=== PATIENT | female | born 1935 | race Caucasian/White ===

== ENCOUNTER → 2016-12-12 | Day surgery (SDC) | payer MEDICARE ==
[~2016-12-12] MED LIST: ABILIFY PO; ABILIFY10 MG PO; ACETAMINOPHEN PO; AMLODIPINE BESY10 MG PO; EVISTA60 M1 PO; LOSARTAN-HCTZ1 EACH PO; METFORMIN HCL500 M1 PO; METFORMIN PO; MOBIC PO; MOBIC15 MG PO; NORCO 5/325 TAB1 TAB PO; NORVASC PO; PREDNISONE5 M1 PO; TYLENOL PM EX-1 EACH PO; ZOLOFT PO
--- NOTE | ~2016-12-12 | OR ---
Unit #: [id number] #: [id number] Patient: COLEMAN LOCKE [id number] [address] [address] [id number] O MR#: [id number] NAME: COLEMAN LOCKE ROOM: Date of Procedure: 12/12/2016 Admission Date: 12/12/2016 Surgeon: Smith Chavira M.D. : 1935 Attending Physician: Smith Chavira M.D. Primary Care Physician: Everette Cain M.D. OPERATIVE REPORT JOB NOTE: VERIFY MRN PREOPERATIVE DIAGNOSES 1. History of colonic polyps. 2. Screening colonoscopy. POSTOPERATIVE DIAGNOSES 1. History of colonic polyps. 2. Screening colonoscopy. PROCEDURE PERFORMED Colonoscopy to cecum. ANESTHESIA Monitored anesthesia care. FINDINGS The patient was found to have sigmoid diverticula and one or two small right-sided diverticula. Internal hemorrhoids were also found. SPECIMENS None. COMPLICATIONS None apparent. CONDITION The patient tolerated the procedure well. INDICATIONS FOR PROCEDURE The patient is an 81-year-old white female, who 5 years ago had a screening colonoscopy performed and had a polyp removed. She presents at this time for evaluation by colonoscopy. DESCRIPTION OF PROCEDURE After obtaining informed consent, the patient was brought to the endoscopy suite and after adequate monitored anesthesia care, had the colonoscope placed through the anus and slowly advanced to the level of the cecum without difficulty and with the lumen always in view. The cecum was normal as was the ileocecal valve. The ascending colon was normal except for 2 or 3 very small shallow diverticula. The hepatic flexure was normal as was the transverse colon, splenic flexure, and descending colon. The Unit #: [id number] #: [id number] Patient: COLEMAN LOCKE sigmoid colon was normal except for a moderate amount of sigmoid diverticula over a 10 to 12 cm segment. The rectosigmoid and rectum were all within normal limits. On retroflexing in the rectum to the anorectal junction, the patient was found to have some mild to moderate internal hemorrhoids. The scope was removed without difficulty. On digital examination, there was good sphincter tone. No masses palpable. The patient went from the endoscopy suite to the recovery area in stable condition. RECOMMENDATIONS High-fiber diet, lots of liquids, tucks or wipes p.r.n. Diverticular sheet given. Dictated by... Julian Becker/george TD: 12/12/2016 23:26 JOB #: [id number] CC: [facility] OPERATIVE REPORT Page 1 of 1 X Smith Chavira MD X PROCEDURE OPERATIVE NOTE
== END | disposition home or self-care (01) ==
LOC: COPS 10:42
DX: Z12.11 Encounter for screening for malignant neoplasm of colon (principal); K57.30 Diverticulosis of large intestine without perforation or abscess without bleeding; K64.8 Other hemorrhoids; K21.9 Gastro-esophageal reflux disease without esophagitis; E11.9 Type 2 diabetes mellitus without complications; I10 Essential (primary) hypertension; M19.90 Unspecified osteoarthritis, unspecified site; E78.00 Pure hypercholesterolemia, unspecified; Z86.010 Personal history of colon polyps; Z90.710 Acquired absence of both cervix and uterus; Z90.89 Acquired absence of other organs; Z88.6 Allergy status to analgesic agent; Z88.8 Allergy status to other drugs, medicaments and biological substances; Z79.899 Other long term (current) drug therapy
CPT/HCPCS: 82947